=== PATIENT | male | born 1990 | race African-American/Black ===

== ENCOUNTER 2020-10-17 08:52 | Emergency (ER) | payer OTHER, SELFPAY ==
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
[2020-10-17 08:58] VITALS: BP 125/104; PULSE 140; RESP 18; TEMP 36.8; O2SAT 100
--- NOTE | 2020-10-17 09:10 | ECG_ITS ---
Measurements Intervals [place] Rate: 110 P: MD: 0 QRS: 115 QRSD: 105 T: 87 QT: 286 QTc: 388 Interpretive Statements SINUS TACHYCARDIA WITH MARKED SINUS ARRHYTHMIA INCOMPLETE RIGHT BUNDLE BRANCH BLOCK LEFT POSTERIOR FASCICULAR BLOCK MINIMAL Q WAVES- INFERIOR LEADS T WAVE ABNORMALITY IN ANTERIOR LEADS- CONSIDER ISCHEMIA BASELINE ARTIFACT- II, III, AVF, V1, V3-V6 ABNORMAL ECG Electronically Signed On 10-17-2020 14:52:53 CDT by Jesus Miles D.O.
[2020-10-17 09:30] VITALS: BP 101/90; PULSE 90; RESP 15; O2SAT 100
[2020-10-17 09:35] VITALS: PULSE 61; O2SAT 100
[2020-10-17 09:41] LABS: Basophils Percent Auto 0.4 % (0.2-1.2); Eosinophils Percent Auto 0.2 % (0-4.4); Hematocrit 40.9 % (42.0-52.0); Hemoglobin 13.7 g/dL (14.0-18.0); Immature Granulocyte Absolute 0.04 K/mm3 (0.00-0.031); Immature Granulocyte Percent A 0.4 % (0-0.5); Lymphocytes Absolute Auto 1.56 K/mm3 (0.9-3.2); Lymphocytes Percent Auto 17.1 % (18.3-44.2); Mean Corpuscular HGB Conc 33.5 g/dl (32-36); Mean Corpuscular Hemoglobin 28.4 pg (26-34); Mean Corpuscular Volume 84.7 fl (80-100); Mean Platelet Volume 12.3 fl (7.4-10.4); Monocytes Absolute Auto 0.7 K/mm3 (0.1-0.6); Monocytes Percent Auto 7.8 % (2.6-8.5); Neutrophils Absolute Auto 6.8 K/mm3 (1.3-6.7); Neutrophils Percent Auto 74.1 % (45.5-73.1); Platelet Count Result 255 k/mm3 (150-375); Red Blood Count 4.83 M/mm3 (4.6-6.20); Red Cell Distribution Width 12.1 % (11.5-14.5); White Blood Count 9.1 K/mm3 (4.5-10.0)
[2020-10-17 09:51] VITALS: BP 116/77; PULSE 99; RESP 14; O2SAT 100
[2020-10-17 09:52] LABS: INR 1.2; Prothrombin Time 15.3 Seconds (11.1-14.7)
[2020-10-17 09:53] LABS: Ethanol < 10 mg/dL (<10)
[2020-10-17 09:56] LABS: Add Urine Microscopic? YES; Appearance Urine Cloudy (Clear); Bilirubin Urine 1+ (Negative); Blood Urine Negative (Negative); Color Urine Amber (Yellow); Glucose Urine UA Negative (Negative); Ketones Urine Trace mg/dL (Negative); Leukocyte Esterase Ur Negative LEU/UL (Negative); Mucus Urine Heavy /lpf; Nitrate Urine Negative (Negative); Protein Urine 2+ mg/dL (Negative); Squamous Epithelial Cell Urine Occasional /hpf (Few); WBC Urine 0-3 /hpf
[2020-10-17 09:59] LABS: Alveolar/Arterial O2 Gradient 77.1 mmHg; Base Excess ABG -1.6 mEq/l (+/-2.0); Carboxyhemoglobin 0.4 % THb (0-2.0); Device VENTILATOR; Fractional Inspired Oxygen 100 %; HCO3 ABG 23.6 mEq/l (22.0-26.0); Methemoglobin ABG 0.4 %THb (0-1.5); Oxygen Saturation ABG 99.9 % (95.0-100.0); Oxyhemoglobin 98.3 % THb (90.0-100.0); PCO2 ABG 41.6 mmHg (35.0-45.0); PO2 ABG 594.3 mmHg (80.0-100.0); PO2 FiO2 Ratio Arterial Blood 5.94 %; Reduced Hemoglobin 0.9 %THb (0-5.0); Site Drawn RIGHT BRACHIAL; Total Hemoglobin 13.3 g/dL (12.0-18.0); pH ABG 7.372 (7.350-7.450)
[2020-10-17 10:00] VITALS: BP 128/95; PULSE 76; RESP 14; O2SAT 100
[2020-10-17 10:00] LABS: Arterial Blood Gas PEEP 5 cmH2O; Arterial Blood Gas Tidal Volume 350 ml; Arterial Blood Gas Vent Mode ASSIST CONTROL; Arterial Blood Gas Ventilator rate 14 /MIN
[2020-10-17 10:00] LABS: Amphetamine Screen Urine Negative (Negative); Barbiturate Screen Urine Negative (Negative); Benzodiazepines Screen Urine Negative (Negative); Cannabinoid Screen Urine Positive (Negative); Cocaine Screen Urine Negative (Negative); Methadone Screen Urine Negative (Negative); Opiate Screen Urine Negative (Negative); Phencyclidine Screen Urine Negative (Negative)
[2020-10-17 10:00] LABS: Lactic Acid Reflex 6.5 mmol/L (0.7-2.1)
[2020-10-17 10:01] LABS: Alanine Aminotransferase 30 U/L (4-50); Albumin Level 4.7 g/dL (3.5-5.1); Alkaline Phosphatase 56 U/L (38-126); Anion Gap 17 mmol/L (8-16); Aspartate Amino Transferase 43 U/L (17-59); Bilirubin,Total 1.3 mg/dL (0.2-1.3); Blood Urea Nitrogen 14 mg/dL (9-20); Calcium 9.4 mg/dL (8.4-10.2); Carbon Dioxide 21 mmol/L (22-30); Chloride 101 mmol/L (98-107); Creatine Kinase 205 U/L (55-170); Estimated Glomerular Filt Rate > 60; Glucose 235 mg/dL (75-110); Potassium 3.6 mmol/L (3.4-5.0); Sodium 139 mmol/L (137-145)
[2020-10-17] MEDS: LACTATED RINGERS 1,000 ML 999 ML IV CONT ×2 (10:06→11:27)
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
--- NOTE | 2020-10-17 10:30 | PC.NURSE ---
family at bedside
[2020-10-17] MEDS: LORazepam INJ (*CRX) 2 MG/ML VIAL IV PUSH ×2 (10:39→10:57)
[2020-10-17] MEDS: fentaNYL CITRATE INJ (*CRX) 100 MCG/2 ML VIAL IV PUSH (10:56)
[2020-10-17 11:01] VITALS: BP 109/72; PULSE 104; RESP 17; O2SAT 100
[2020-10-17] MEDS: RAPID SEQUENCE INTUBATION KIT 1 EACH ×2 (11:10→11:27)
[2020-10-17] MEDS: MIDAZOLAM HCL (*CRX) 2 MG/2 ML VIAL (11:26)
[2020-10-17 11:53] LABS: Hepatitis B Surface Antigen Negative (Negative)
[2020-10-17 12:00] LABS: HIV 1/2 Ab P24 Ag Result Negative (Negative)
[2020-10-17 12:11] LABS: Hepatitis C Virus Antibody Negative (Negative)
[2020-10-17 12:39] LABS: Reflex Lactic Acid Yes or No Add Lactic
--- NOTE | 2020-10-28 09:44 | PC.NURSE ---
LATE ENTRY This note is being entered to document information to the patient's record. The following information was omitted on [10/17/20], by [So Barcenas RN]. LR infusing when patient was transferred. Rate continued at 999ml/hr.
== END 2020-10-17 11:33 | disposition short-term general hospital (02) ==
PROVIDERS: Emergency Medicine Emergency Medical Services; Emergency Provider General Practice
DX: S09.90XA Unspecified injury of head, initial encounter (principal); S61.512A Laceration without foreign body of left wrist, initial encounter; S01.82XA Laceration with foreign body of other part of head, initial encounter; R00.0 Tachycardia, unspecified; I45.2 Bifascicular block; R94.31 Abnormal electrocardiogram [ECG] [EKG]; V43.52XA Car driver injured in collision with other type car in traffic accident, initial encounter
CPT/HCPCS: 31500; 36415; 36600; 70450; 71045; 72125; 73110; 80053; 80307; 81001; 82375; 82550; 82805; 83050; 83605; 85025; 85610; 85730; 86703; 86803; 87340; 93005; 96374; 96375; 99291; G0432; J2060; J2250; J2704; J3010; J7120